=== PATIENT | male | born 1995 | race Two or more races ===

== ENCOUNTER 2017-02-03 21:11 | Emergency (ER) | payer OTHER ==
[2017-02-03 21:16] VITALS: BP 120/77; PULSE 81; RESP 16; TEMP 97.9; O2SAT 97
--- NOTE | 2017-02-03 21:25 | EDPHY ---
H & P Time Seen by Provider: 02/03/17 21:17 HPI/ROS: CHIEF COMPLAINT: "I have a sore throat" HISTORY OF PRESENT ILLNESS: 21-year-old immunocompetent male complaining of 7 days of sore throat. No cough. No fever or chills. No change in voice. No chest pain. No abdominal pain. No rash. No nuchal rigidity. No adenopathy. PRIMARY CARE PROVIDER: [facility] REVIEW OF SYSTEMS: A ten point review of systems was performed and is negative with the exception of the items mentioned in the HPI PAST MEDICAL & SURGICAL HISTORY: No pertinent medical or surgical history SOCIAL HISTORY: No alcohol use PHYSICAL EXAM (Prior to examination, patient consented to physical exam, hands were washed and my usual and customary physical exam procedures followed) 1) GENERAL: Well-developed, well-nourished, alert and oriented. Appears to be in no acute distress. 2) HEAD: Normocephalic, atraumatic 3) HEENT: Pupils equal, round, reactive to light bilaterally. Sclera anicteric. Oropharynx: Bilateral tonsils are enlarged with white exudate. Tonsils are symmetrical. Uvula midline. No trismus no drooling. No hot potato voice. Ears bilaterally with normal tympanic membranes. 4) NECK: Full range of motion, no meningeal signs. No adenopathy. 5) LUNGS: Clear auscultation bilaterally, no wheezes, no rhonchi, no retractions. 6) HEART: Regular rate and rhythm, no murmur, no heave, no gallop. 7) ABDOMEN: No guarding, no rebound, no focal tenderness, negative McBurney's, negative Luna's, negative Rovsing's, negative peritoneal sign, no splenomegaly 8) MUSCULOSKELETAL: Moving all extremities, no focal areas of tenderness, no obvious trauma. No peripheral edema or discoloration. 9) BACK: No CVA tenderness, no midline vertebral tenderness, no fluctuance, no step-off, no obvious trauma, no visual or palpable abnormality. 10) SKIN: No rash, no petechiae. 11) Psychiatric: Patient is oriented X 3, there is no agitation. DIFFERENTIAL DIAGNOSIS: in no particular order including but not limited to strep pharyngitis, viral pharyngitis, peritonsillar abscess, epiglottitis Smoking Status: Never smoked Constitutional: Initial Vital Signs Temperature (C) 36.6 C 02/03/17 21:14 Heart Rate 81 02/03/17 21:14 Respiratory Rate 16 02/03/17 21:14 Blood Pressure 120/77 02/03/17 21:14 O2 Sat (%) 97 02/03/17 21:14 O2 Delivery Mode Room Air Allergies/Adverse Reactions: No Known Allergies Allergy (Unverified 02/03/17 21:14) Home Medications: Medication Instructions Recorded Penicillin V Potassium [Pen Vk] 500 mg PO Q6 10 Days tab 02/03/17 methylPREDNISolone [Medrol Dose 4 mg PO DAILY #1 ea 02/03/17 Anders] MDM/[facility]arture - [facility] Course/Re-evaluation: High clinical suspicion for strep pharyngitis. Doubt epiglottitis. Doubt peritonsillar abscess, retropharyngeal abscess or phlegmon. Recommended empiric treatment with antibiotics and steroids. No prior history of adverse reactions steroids. Airway is patent. Usual and customary pharyngitis precautions and instructions provided - Depart Disposition: Home, Routine, Self-Care Clinical Impression: Strep pharyngitis Condition: Good Instructions: Strep Throat (ED) Additional Instructions: Return to the ER immediately if you cannot swallow, have drooling, fevers, neck stiffness, cannot open your jaw, or any other symptoms that concern you. Prescriptions: methylPREDNISolone [Medrol Dose Anders] 4 mg PO DAILY #1 ea Penicillin V Potassium [Pen Vk] 500 mg PO Q6 10 Days tab Referrals: [facility] [Clinic] - 02/06/17
[2017-02-03] MEDS ORDERED: PENICILLIN VK 250MG PREPACK#6 BTL TAKEHOME ONE (21:28)
== END 2017-02-03 21:37 | disposition home or self-care (01) ==
DX: J02.0 Streptococcal pharyngitis (principal)

== ENCOUNTER 2017-03-25 22:45 | Emergency (ER) | payer OTHER ==
[2017-03-25 22:54] VITALS: RESP 16; TEMP 97.7; O2SAT 97
[2017-03-25] MEDS ORDERED: LIDOCAINE 2% VISCOUS 15 ML UDCUP PO ONE (23:13)
[2017-03-25] MEDS ORDERED: HYOSCYAMINE SULFATE 0.125 MG TAB PO ONE (23:13)
[2017-03-25] MEDS ORDERED: MAG HYDROX/AL HYDROX/SIMETH 30 ML UDCUP PO ONE (23:13)
--- NOTE | 2017-03-25 23:15 | EDPHY ---
H & P Stated Complaint: nausea after eating x 2 months Time Seen by Provider: 03/25/17 22:58 HPI/ROS: CHIEF COMPLAINT: Postprandial nausea x1 month HISTORY OF PRESENT ILLNESS: 21-year-old male in the ER complaining of postprandial nausea for 1 month. Currently complaining of mild nausea. No abdominal pain. No fever or chills. No radiation of pain no back pain. Bowel movements normal. No chronic NSAID use. No melena or hematochezia. Nonsmoker. No alcohol or drug use. No caffeine or caffeinated beverage ingestion REVIEW OF SYSTEMS: A ten point review of systems was performed and is negative with the exception of the items mentioned in the HPI PAST MEDICAL & SURGICAL HISTORY: No pertinent medical or surgical history SOCIAL HISTORY:nonsmoker. No alcohol use PHYSICAL EXAM (Prior to examination, patient consented to physical exam, hands were washed and my usual and customary physical exam procedures followed) 1) GENERAL: Well-developed, well-nourished, alert and oriented. Appears to be in no acute distress. 2) HEAD: Normocephalic, atraumatic 3) HEENT: Pupils equal, round, reactive to light bilaterally. Sclera anicteric. Nasopharynx, oropharynx, clear, no lesions. Moist mucous membrane 4) NECK: Full range of motion, no meningeal signs. 5) LUNGS: Clear auscultation bilaterally, no wheezes, no rhonchi, no retractions. 6) HEART: Regular rate and rhythm, no murmur, no heave, no gallop. 7) ABDOMEN: No guarding, no rebound, no focal tenderness, negative McBurney's, negative Luna's, negative Rovsing's, negative peritoneal sign, 8) MUSCULOSKELETAL: Moving all extremities, no focal areas of tenderness, no obvious trauma. No peripheral edema or discoloration. 9) BACK: No CVA tenderness, no midline vertebral tenderness, no fluctuance, no step-off, no obvious trauma, no visual or palpable abnormality. 10) SKIN: No rash, no petechiae. 11) Psychiatric: Patient is oriented X 3, there is no agitation. DIFFERENTIAL DIAGNOSIS: In no particular order, including but not limited to biliary colic, cholecystitis, peptic ulcer disease, pancreatitis, and gastroenteritis. This is a partial list of diagnoses considered. These considerations are based on history, physical exam, past history and reassessment. - Personal History Current Tetanus Diphtheria and Acellular Pertussis (TDAP): Unsure Tetanus Vaccine Date: < 10 YEARS - Medical/Surgical History Hx Asthma: No Hx Chronic Respiratory Disease: No Hx Diabetes: No Hx Cardiac Disease: No Hx Renal Disease: No Hx Cirrhosis: No Hx Alcoholism: No Hx HIV/AIDS: No Hx Splenectomy or Spleen Trauma: No Other PMH: denies - Social History Smoking Status: Never smoked Constitutional: Initial Vital Signs Temperature (C) 36.5 C 03/25/17 22:52 Heart Rate 92 03/25/17 22:52 Respiratory Rate 16 03/25/17 22:52 Blood Pressure 125/71 H 03/25/17 22:52 O2 Sat (%) 97 03/25/17 22:52 O2 Delivery Mode Room Air Allergies/Adverse Reactions: No Known Allergies Allergy (Unverified 02/03/17 21:14) Home Medications: Medication Instructions Recorded Pantoprazole Sodium [Protonix 40mg 40 mg PO DAILY #30 tab 03/25/17 (RX)] Medical Decision Making ED Course/Re-evaluation: Care of patient under supervision of secondary supervising physician Dr Kapoor . Patient given volume hydration for suspected volume depletion, noted to have elevated H&H more than likely secondary to hemoconcentration. Patient has been re-evaluated with serial exams. He was given GI cocktail notes improvement in his symptoms. I think that acute pancreatitis, acute cholecystitis, less than likely in this patient at this time. We discussed possibility peptic ulcer disease, esophageal reflux. I will prescribe the patient proton pump inhibitor. I do not think that further diagnostic studies or imaging indicated from the emergency department. Recommend follow up with Gastroenterology and given this follow-up information. He feels comfortable with this discharge plan. - Data Points Laboratory Results: Laboratory Results 03/25/17 23:13 03/25/17 23:13 03/25/17 03/25/17 23:13 23:13 WBC 7.22 10^3/uL 10^3/uL (3.80-9.50) RBC 6.16 10^6/uL 10^6/uL (4.40-6.38) Hgb 18.3 g/dL H g/dL (13.7-17.5) Hct 51.1 % H % (40.0-51.0) MCV 83.0 fL fL (81.5-99.8) MCH 29.7 pg pg (27.9-34.1) MCHC 35.8 g/dL g/dL (32.4-36.7) RDW 11.9 % % (11.5-15.2) Plt Count 259 10^3/uL 10^3/uL (150-400) MPV 9.5 fL fL (8.7-11.7) Neut % (Auto) 61.7 % % (39.3-74.2) Lymph % (Auto) 27.6 % % (15.0-45.0) [place] % (Auto) 9.0 % % (4.5-13.0) Eos % (Auto) 0.8 % % (0.6-7.6) Baso % (Auto) 0.6 % % (0.3-1.7) Nucleat RBC Rel Count 0.0 % % (0.0-0.2) Absolute Neuts (auto) 4.46 10^3/uL 10^3/uL (1.70-6.50) Absolute Lymphs (auto) 1.99 10^3/uL 10^3/uL (1.00-3.00) Absolute Monos (auto) 0.65 10^3/uL 10^3/uL (0.30-0.80) Absolute Eos (auto) 0.06 10^3/uL 10^3/uL (0.03-0.40) Absolute Basos (auto) 0.04 10^3/uL 10^3/uL (0.02-0.10) Absolute Nucleated RBC 0.00 10^3/uL 10^3/uL (0-0.01) Immature Gran % 0.3 % % (0.0-1.1) Immature Gran # 0.02 10^3/uL 10^3/uL (0.00-0.10) Sodium 144 mEq/L mEq/L (134-144) Potassium 3.6 mEq/L mEq/L (3.5-5.2) Chloride 100 mEq/L mEq/L (97-110) Carbon Dioxide 28 mEq/l mEq/l (22-31) Anion Gap 16 mEq/L mEq/L (8-16) BUN 15 mg/dL mg/dL (7-23) Creatinine 0.8 mg/dL mg/dL (0.7-1.3) Estimated GFR > 60 Glucose 92 mg/dL mg/dL (70-100) Calcium 10.3 mg/dL mg/dL (8.5-10.4) Total Bilirubin 1.0 mg/dL mg/dL (0.1-1.4) Conjugated Bilirubin 0.2 mg/dL mg/dL (0.0-0.5) Unconjugated Bilirubin 0.8 mg/dL mg/dL (0.0-1.1) AST 22 IU/L IU/L (17-59) ALT 29 IU/L IU/L (21-72) Alkaline Phosphatase 79 IU/L IU/L (38-126) Total Protein 8.9 g/dL H g/dL (6.3-8.2) Albumin 5.1 g/dL H g/dL (3.5-5.0) Lipase 111 IU/L IU/L (23-300) Medications Given: Discontinued Medications Al Hydroxide/Mg Hydroxide (Maalox Susp) 30 ml PO ONCE ONE Stop: 03/25/17 23:14 Last Admin: 03/25/17 23:22 Dose: 30 ml Hyoscyamine Sulfate (Levsin, Hyomax-Sl) 0.25 mg PO ONCE ONE Stop: 03/25/17 23:14 Last Admin: 03/25/17 23:21 Dose: 0.25 mg Lidocaine (Lidocaine 2% Viscous) 15 ml PO ONCE ONE Stop: 03/25/17 23:14 Last Admin: 03/25/17 23:22 Dose: 15 ml Departure - Departure Disposition: Home, Routine, Self-Care Clinical Impression: Postprandial nausea, Volume depletion Condition: Good Instructions: Acute Nausea and Vomiting (ED) Additional Instructions: Seek immediate medical attention if you develop new or worsening symptoms, if you develop fevers, chills, inability to tolerate oral intake or any other symptoms that concerns you. Referrals: Bj Luna MD [Medical Doctor] - 5-7 days, call for appt. Prescriptions: Pantoprazole Sodium [Protonix 40mg (RX)] 40 mg PO DAILY #30 tab
[2017-03-25 23:26] LABS: % IMMATURE GRANULYOCYTES 0.3 % (0.0-1.1); ABSOLUTE IMMATURE GRANULOCYTES 0.02 10^3/uL (0.00-0.10); ADD DIFF? NO; ADD MORPH? NO; ADD SCAN? NO; ATYPICAL LYMPHOCYTE FLAG 0 (0-99); FRAGMENT RBC FLAG 0 (0-99); HEMATOCRIT 51.1 % (40.0-51.0); HEMOGLOBIN 18.3 g/dL (13.7-17.5); LEFT SHIFT FLG 0 (0-99); LIPEMIA HEMOLYSIS FLAG 90 (0-99); MEAN CELL HEMOGLOBIN 29.7 pg (27.9-34.1); MEAN CELL HEMOGLOBIN CONCENTR. 35.8 g/dL (32.4-36.7); MEAN PLATELET VOLUME 9.5 fL (8.7-11.7); PLATELET CLUMPS FLAG 0 (0-99); PLATELET COUNT 259 10^3/uL (150-400); RED BLOOD CELL COUNT 6.16 10^6/uL (4.40-6.38); RED CELL DISTRIBUTION WIDTH 11.9 % (11.5-15.2)
[2017-03-25 23:38] LABS: ALANINE AMINOTRANSFERASE 29 IU/L (21-72); ALBUMIN 5.1 g/dL (3.5-5.0); ALKALINE PHOSPHATASE 79 IU/L (38-126); ANION GAP 16 mEq/L (8-16); ASPARTATE AMINOTRANSFERASE 22 IU/L (17-59); BILIRUBIN-CONJUGATED 0.2 mg/dL (0.0-0.5); BILIRUBIN-UNCONJUGATED 0.8 mg/dL (0.0-1.1); CALCIUM 10.3 mg/dL (8.5-10.4); CARBON DIOXIDE 28 mEq/l (22-31); CHLORIDE 100 mEq/L (97-110); CREATININE 0.8 mg/dL (0.7-1.3); GLOMERULAR FILTRATION RATE > 60; GLUCOSE 92 mg/dL (70-100); POTASSIUM 3.6 mEq/L (3.5-5.2); SODIUM 144 mEq/L (134-144); TOTAL PROTEIN 8.9 g/dL (6.3-8.2)
[2017-03-25] MEDS ORDERED: ONDANSETRON 4 MG/2 ML VIAL IVP ONE (23:51)
[2017-03-26 00:25] VITALS: BP 131/71; PULSE 82
== END 2017-03-26 00:31 | disposition home or self-care (01) ==
DX: R11.0 Nausea (principal); E86.9 Volume depletion, unspecified
CPT/HCPCS: 96374; J2405

== ENCOUNTER 2018-07-17 13:03 | Emergency (ER) | payer OTHER ==
--- NOTE | 2018-07-17 13:52 | EDPHY ---
General Time Seen by Provider: 07/17/18 13:36 Narrative: CLINICAL IMPRESSION: Viral URI with cough ASSESSMENT/PLAN: 22-year-old otherwise healthy male presents to the emergency department today for concerns of URI symptoms with sore throat cough for approximately 1 week. Patient reports symptoms have been intermittent, not getting worse, not associated with fever or chills. Vital signs stable, no hypoxia or respiratory distress. No underlying cardiopulmonary disease. No clinical signs to suggest bacterial upper or lower respiratory disease requiring antibiotics. I suspect patient has a viral syndrome. We discussed [id number] supportive remedies. A school note was given to excuse him from classes today. Follow-up with student [facility], warning signs return to ED sooner alignment discharge. DIFFERENTIAL DX: Differential includes but not limited to viral URI, influenza, influenza like syndrome, pharyngitis, strep tonsillitis CHIEF COMPLAINT: Sore throat, congestion, runny nose, cough x1 week HPI: 22-year-old [employer] student presents to the emergency department with 1 week of URI symptoms with sore throat. No reported fever or chills. Symptoms have been intermittent for 1 week, not reportedly getting worse. No underlying cardiopulmonary disease or asthma. He is a nonsmoker. He has not tried anything for his symptoms. He has not seen [facility] for his symptoms. He reports he is able to eat and drink. No abdominal symptoms. 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 PHYSICAL EXAM: General Appearance: Alert, oriented, appropriate, cooperative, NAD, well hydrated, non-toxic appearing, VSS, no hypoxia. HEENT: TMs are clear bilaterally no perforation or FB, no injection, no evidence of serous or mucopurulent otitis. Oropharynx clear is no erythema or exudates, no tonsillar hypertrophy or asymmetry. Dentition without abnormality. Eyes: PERRLA, no acute vision change, nystagmus, swelling, discharge, pain or photosensitivity. Conjunctiva pink, no pallor or injection Neck: Supple, nontender, no lymphadenopathy, no midline pain, FROM, no meningismus. Respiratory: There are no retractions, lungs are clear to auscultation. Cardiac: Regular rate and rhythm, no murmurs or gallops. Skin: Warm, dry, no rashes, no nodules on palpation. MEDICAL DECISION MAKING: Patient was seen independently. Secondary supervising physician at time of evaluation was: Dr. Alarcon. Diagnosis: Viral URI with cough. New, requires workup Summary: See Assessment and Plan for summary of ED visit Patient Progress: Improved, stable for discharge. - History Smoking Status: Never smoked - Objective Vital Signs: Initial Vital Signs Temperature (C) 36.4 C 07/17/18 13:06 Heart Rate 88 07/17/18 13:06 Respiratory Rate 16 07/17/18 13:06 Blood Pressure 115/77 07/17/18 13:06 O2 Sat (%) 97 07/17/18 13:06 O2 Delivery Mode Room Air Allergies/Adverse Reactions: No Known Allergies Allergy (Verified 07/17/18 13:09) Departure - Departure Disposition: Home, Routine, Self-Care Clinical Impression: Viral URI with cough Condition: Good Instructions: Viral Syndrome (ED) Additional Instructions: DISCHARGE INSTRUCTIONS FROM YOUR DOCTOR Thank you for visiting our emergency department today. You were treated by a physician assistant media buyer today and your case was reviewed with our ED Attending physician. Please keep in mind that discharge from the emergency department does not mean that there is nothing wrong - it simply means that we have not identified an emergency condition that requires further evaluation or treatment in the hospital. You should always plan to follow up with primary care for re- evaluation of your condition in the next 2-3 days. If you have been referred to a specialist, please call as soon as possible (today or tomorrow) to schedule your follow up appointment at the appropriate time. YOU HAVE NO EVIDENCE OF BACTERIAL INFECTION REQUIRING ANTIBIOTICS TODAY. PLEASE CONSIDER USING SUDAFED [id number] FOR NASAL CONGESTION, 1000 MG OF TYLENOL OR 2 TABLETS OF ALEVE EVERY 8 HR FOR SORE THROAT. STAY WELL-HYDRATED. FOLLOW UP WITH [facility]. A SCHOOL NOTE WAS GIVEN TO EXCUSE YOU FROM CLASSES TODAY. RETURN TO THE EMERGENCY DEPARTMENT FOR SEVERE SORE THROAT, INABILITY TO SWALLOW YOUR OWN SALIVA, SEVERE COUGH OR SHORTNESS OF BREATH, OR ANY OTHER CONCERN. People present with illnesses and injuries in different ways, and it is always possible that we have missed something. You may always return for re-evaluation if symptoms worsen or if they are not improving or if you develop new/different symptoms. Again, thank you for choosing our emergency department. We hope that you feel better. Referrals: NONE *PRIMARY CARE P,. [Primary Care Provider] - As per Instructions [facility],. [Clinic] - 1-2 days without fail
[2018-07-17 14:14] VITALS: BP 128/88
== END 2018-07-17 14:09 | disposition home or self-care (01) ==
DX: J06.9 Acute upper respiratory infection, unspecified (principal)

== ENCOUNTER 2018-08-24 00:54 | Emergency (ER) | payer OTHER ==
[2018-08-24 00:58] VITALS: BP 125/76
[2018-08-24] MEDS ORDERED: ONDANSETRON DISINTEGRATING 4 MG TAB PO ONE (01:34)
[2018-08-24] MEDS ORDERED: ACETAMINOPHEN 500 MG TAB PO ONE (01:34)
[2018-08-24] MEDS ORDERED: IBUPROFEN 200 MG TAB PO ONE (01:34)
--- NOTE | 2018-08-24 01:37 | EDPHY ---
H & P Stated Complaint: Sore throat, DAHL x3 day Time Seen by Provider: 08/24/18 01:15 HPI/ROS: HPI The patient presents with sore throat, headache, abdominal pains for the last 3 days. Symptoms initially began with a sore throat which feels dull and constant to him, worse when he swallows not associated with any pains in the neck. He has been able to take p. O. Without difficulty. He has taken ibuprofen and Tylenol with improvement in his symptoms. He also reports a dull and throbbing left-sided diffuse headache associated with mild photophobia. Symptoms started slowly and began after his sore throat. He also complains of epigastric abdominal pain which is mild and worse after eating. He reports subjective fevers. He is here with a friend who is also being evaluated for similar symptoms . REVIEW OF SYSTEMS 10 systems were reviewed and negative with the exception of the elements mentioned in the history of present illness. PMHx: Healthy Soc Hx: College student PHYSICAL General Appearance: Alert, no distress Eyes: Pupils equal and round no pallor or injection ENT, Mouth: Mucous membranes moist, posterior pharynx is slightly erythematous without exudate, no cervical lymphadenopathy Respiratory: There are no retractions, lungs are clear to auscultation Cardiovascular: Regular rate and rhythm Gastrointestinal: Abdomen is soft and non-tender, no masses, bowel sounds normal Neurological: A&O, cranial nerves 2-12 intact, 5/5 strength in upper and lower extremities Skin: Warm and dry, no rashes Musculoskeletal: Neck is supple non tender Extremities: symmetrical, full range of motion Psychiatric: Patient is oriented X 3, there is no agitation Source: Patient Exam Limitations: No limitations - Personal History Current Tetanus/Diphtheria Vaccine: Yes Tetanus Vaccine Date: < 10 YEARS - Medical/Surgical History Hx Asthma: No Hx Chronic Respiratory Disease: No Hx Diabetes: No Hx Cardiac Disease: No Hx Renal Disease: No Hx Cirrhosis: No Hx Alcoholism: No Hx HIV/AIDS: No Hx Splenectomy or Spleen Trauma: No Other PMH: denies - Social History Smoking Status: Never smoked Constitutional: Initial Vital Signs Temperature (C) 36.7 C 08/24/18 00:56 Heart Rate 95 08/24/18 00:56 Respiratory Rate 16 08/24/18 00:56 Blood Pressure 125/76 H 08/24/18 00:56 O2 Sat (%) 95 08/24/18 00:56 O2 Delivery Mode Room Air Allergies/Adverse Reactions: No Known Allergies Allergy (Verified 07/17/18 13:09) Home Medications: Medication Instructions Recorded NK [No Known Home Meds] 08/24/18 Medical Decision Making Differential Diagnosis: This is a 23-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 On exam, he is extremely well-appearing, has normal vital signs, posterior pharynx is injected, however remainder of physical exam including his neurologic evaluation is normal. Differential diagnosis includes strep pharyngitis, viral URI, tension-type headache, migraine headache. I doubt meningitis given no nuchal rigidity and mild nature of symptoms. I doubt subarachnoid hemorrhage given normal neuro exam. In the emergency department, patient received ibuprofen, Tylenol, Zofran with improvement in his symptoms. Rapid strep was negative, patient refused rapid flu testing. Plan for discharge home with instructions for supportive care. - Data Points Laboratory Results: 08/24/18 08/24/18 08/24/18 Unknown 01:45 01:45 Nasal Influenza A PCR Cancelled Nasal Influenza B PCR Cancelled RSV (PCR) Cancelled Group A Strep Screen Cancelled NEGATIVE (NEGATIVE) Group A Strep DNA Pending Medications Given: Discontinued Medications Acetaminophen (Tylenol) 1,000 mg PO EDNOW ONE Stop: 08/24/18 01:35 Last Admin: 08/24/18 01:38 Dose: 1,000 mg Ibuprofen (Motrin) 400 mg PO EDNOW ONE Stop: 08/24/18 01:35 Last Admin: 08/24/18 01:37 Dose: 400 mg Ondansetron HCl (Zofran Odt) 4 mg PO EDNOW ONE Stop: 08/24/18 01:35 Last Admin: 08/24/18 01:38 Dose: 4 mg Departure - Departure Disposition: Home, Routine, Self-Care Clinical Impression: Pharyngitis Qualifiers: Pharyngitis/tonsillitis etiology: unspecified etiology Qualified Code(s): J02.9 - Acute pharyngitis, unspecified Headache Qualifiers: Headache type: unspecified Headache chronicity pattern: acute headache Intractability: not intractable Qualified Code(s): R51 - Headache Condition: Good Instructions: Pharyngitis (ED) Additional Instructions: Your testing today was negative for strep throat. I suspect you have a virus causing your sore throat. Because of this, I recommend you take ibuprofen 400 mg with acetaminophen 1000 mg every 6 hr. You should make sure to drink plenty of fluids. You can buy a Throat lozenge [id number] to help with the sore throat as well. If you're not better in a few days you should follow-up with the student center Referrals: [facility] [Clinic] - As per Instructions Stand Alone Forms: School Excuse
== END 2018-08-24 02:15 | disposition home or self-care (01) ==
DX: J02.9 Acute pharyngitis, unspecified (principal); R51 Headache